=== PATIENT | female | born 1965 | race American Indian/Alaskan Native ===

== ENCOUNTER 2020-12-11 09:14 | Outpatient (CLI) | payer OTHER ==
--- NOTE | 2020-12-11 10:14 | Mammography Report ---
DEXA BONE DENSITY SCAN INDICATION: OSTEOPENIA M85.80. COMPARISON: None available. LUMBAR SPINE (L1-L4): Bone mineral density (BMD) is 0.831 g/cm2. T-score is -2.0 (standard deviations of Young Adult mean). Z-score is -0.8 (standard deviations of Age Matched mean). LEFT FEMORAL NECK: Bone mineral density (BMD) is 0.607 g/cm2. T-score is -2.3 (standard deviations of Young Adult mean). Z-score is -1.1 (standard deviations of Age Matched mean). IMPRESSION: 1. WHO Classification: Osteopenia. Fracture Risk: Increased. Signer Name: Nabil Pierre MD Signed: 12/11/2020 10:10 AM Workstation Name: [id number]
== END 2020-12-11 09:15 | disposition home or self-care (01) ==
LOC: SPVWC 09:14
DX: M85.88 Other specified disorders of bone density and structure, other site (principal)
CPT/HCPCS: 77080